=== PATIENT | female | born 2000 | race African-American/Black ===

== ENCOUNTER → 2025-06-01 16:46 | Outpatient (CLI) | payer OTHER, SELFPAY ==
[2025-06-01 17:21] LABS: Add Manual Diff / Slide Review NO; Hematocrit 35.6 % (36-46); Hemoglobin 12.1 g/dL (12.0-16.0); Lymphocytes Absolute Auto 2200 /uL (1100-4500); Mean Corpuscular HGB Conc 34.1 % (30-36); Mean Corpuscular Hemoglobin 29.8 PG (26-34); Mean Corpuscular Volume 87.4 fL (80-100); Platelet Count 262 X10^3/uL (150-400)
[2025-06-01 17:29] LABS: Appearance Urine UA CLEAR; Bilirubin Urine UA NEGATIVE (NEGATIVE); Color Urine UA YELLOW; Glucose Urine UA NEGATIVE (Negative); Ketones Urine UA NEGATIVE (NEGATIVE); Leukocyte Esterase Urine UA NEGATIVE (NEGATIVE); Nitrite Urine UA NEGATIVE (Negative); Occult Blood Urine UA NEGATIVE (Negative); Protein Urine UA NEGATIVE (Negative); Specific Gravity Urine UA 1.010 (1.000-1.035); Urobilinogen Urine UA 0.2 E.U./dL (0.2)
[2025-06-01 17:55] LABS: pH Urine UA 7.0 (4.5-8.0)
[2025-06-01 18:23] LABS: Hepatitis B Surface Antigen NEGATIVE s/c (NEGATIVE)
[2025-06-01 18:43] LABS: HIV 1 & 2 Ab/Ag 4th Gen Combo NEGATIVE (NEGATIVE); Hep C Virus Ab w/Reflex Quant NEGATIVE s/c (NEGATIVE)
== END ==
PROVIDERS: PCP Family Medicine; Referring Provider Family Medicine; Visit Provider Family Medicine
DX: Z34.00 Encounter for supervision of normal first pregnancy, unspecified trimester (principal)
CPT/HCPCS: 36415; 80055; 81003; 86787; 86803; 86850; 86900; 86901; 87086; 87389

== ENCOUNTER → 2025-06-30 14:23 | Outpatient (CLI) | payer OTHER, SELFPAY ==
[2025-06-30 15:30] LABS: Natera Collection Specimen Collected
== END ==
PROVIDERS: PCP Family Medicine; Referring Provider Family Medicine; Visit Provider Family Medicine
DX: Z34.81 Encounter for supervision of other normal pregnancy, first trimester (principal)
CPT/HCPCS: 36415